=== PATIENT | female | born 1990 ===

== ENCOUNTER 2025-03-25 05:29 | Emergency (ER) | payer OTHER ==
[~2025-03-25] VITALS: Ht 154.9 cm; Wt 88.1 kg
--- NOTE | 2025-03-25 05:51 | ECG ---
[facility] Test Date: 2025-03-25 Test Time: 05:40:59 Pat Name: EVA TOM Department: ED Room: Gender: F Writer: ANDRES : 1990 Requested By: EMERGENCY EMERGENCY Order Number: [id number] Reading MD: Boo Bermudez Measurements Intervals [place] Rate: 102 P: 72 OK: 137 QRS: 95 QRSD: 84 T: 7 QT: 347 QTc: 453 Interpretive Statements Sinus tachycardia Borderline right axis deviation Electronically Signed On 03-26-2025 22:52:04 PDT by Boo Bermudez Please click the below link to view image of tracing.
[2025-03-25 06:08] VITALS: PULSE 78; RESP 18; O2SAT 97
[2025-03-25] MEDS: SODIUM CHLORIDE 0.9% 1,000 ML IV ONE ×2 (06:30)
[2025-03-25] MEDS: methylPREDNISolone SOD SUCC 125 MG/2 ML VL IV ONE (06:30)
--- NOTE | 2025-03-25 06:37 | ED.PDOC ---
HPI Allergic reaction HPI Comments 34 year old female presents to the ED with a chief complaint of allergic reaction onset today (03/25/25). states patient woke up, began experiencing abdominal pain, chest tightness, noticed generalized rash. Upon ED arrival, patient experienced a syncopal episode, states she is currently experiencing generalized weakness, dizziness, shortness of breath. Patient began taking Ozempic about 4 months ago. PMHx HTN. Denies headache, dysphagia, vomiting, diarrhea, fevers, chills. No other symptoms or modifying factors present at this time. Chief Complaint: Allergic Reaction Time Seen by MD: 06:15 Reviewed Notes: Medications, Allergies Allergies: Coded Allergies: NO KNOWN ALLERGIES (Unverified , 03/25/25) Home Meds Active Scripts Prednisone (Prednisone) 10 Mg Tab, 10 MG PO BS for 3 Days, #3 MG Prov:SHYANN LAWSON MD 03/25/25 Meclizine HCl (Meclizine 25) 25 Mg Tab, 25 MG PO DAILY for 5 Days, #5 TAB Prov:SHYANN LAWSON MD 03/25/25 Information Source: Patient, Spouse Mode of Arrival: Ambulatory Severity: Moderate Rash: Moderate Timing: Hours Duration: Since onset Prehospital treatment: None History of: None Modyifying Factors: None Associated Sign and Symptoms: Abdominal Pain, Chest Pain Past Medical History PAST MEDICAL HISTORY: HTN Surgical History: Cholecystectomy, PIPE BUFFER History: No Pertinent PIPE BUFFER History Family History Family History: Reviewed,noncontributory to illness, No family hx of Cancer, No family hx of DM, No family hx of Heart adair, No family hx of HTN, No family hx ofKidney adair, No family hx of Liver adair, No family hx of Lung adair, No family hx of Stroke Social History Smoker: Non-Smoker Alcohol: Denies ETOH Use Drugs: Denies Drug Use Lives In: Home Constitutional: reports: weakness; denies: chills, diaphoresis, fatigue, fever, malaise, sweats, others EENTM: denies: blurred vision, double vision, ear bleeding, ear discharge, ear drainage, ear pain, ear ringing, eye pain, eye redness, hearing loss, mouth pain, mouth swelling, nasal discharge, nose bleeding, nose congestion, nose pain, photophobia, tearing, throat pain, throat swelling, voice changes, others Respiratory: denies: cough, hemoptysis, orthopnea, SOB at rest, shortness of breath, SOB with excertion, stridor, wheezing, others Cardiovascular: reports: chest pain; denies: dizzy spells, diaphoresis, Dyspnea on exertion, edema, irregular heart beat, left arm pain, lightheadedness, palpitations, PND, syncope, others Gastrointestinal: reports: abdominal pain; denies: abdomen distended, blood streaked bowels, constipated, diarrhea, dysphagia, difficulty swallowing, hematemesis, melena, nausea, poor appetite, poor fluid intake, rectal bleeding, rectal pain, vomiting, others Genitourinary: denies: abnormal vagina bleeding, burning, dyspareunia, dysuria, flank pain, frequency, hematuria, incontinence, pain, , vagina discharge, urgency, others Neurological: reports: dizziness, weakness, others (syncope); denies: fainting, headache, left sided numbness, left sided weakness, numbness, paresthesia, pre- existing deficit, right sided numbness, right sided weakness, seizure, speech problems, tingling, tremors Musculoskeletal: denies: back pain, gout, joint pain, joint swelling, muscle pain, muscle stiffness, neck pain, others Integumetry: reports: rash (generalized); denies: bruises, change in color, change in hair/nails, dryness, laceration, lesions, lumps, wounds, others Allergic/Immunocompromised: denies: Difficulty Healing, Frequent Infections, Hives, Itching, others Hematologic/Lymphatic: denies: anemia, blood clots, easy bleeding, easy bruising, swollen glands, others Endocrine: denies: excessive hunger, excessive sweating, excessive thirst, excessive urination, flushing, intolerance to cold, intolerance to heat, unexplained weight gain, unexplained weight loss, others Psychiatric: denies: anxiety, bipolar disorder, depression, hopeless, panic disorder, schizophrenia, sleepless, suicidal, others All Other Systems: Reviewed and Negative Physical Exam General Appearance: Moderate Distress, Normal HEENT: Normal ENT Inspection, Pharynx Normal, TMs Normal Neck: Full Range of Motion, Non-Tender, Normal, Normal Inspection Respiratory: Chest Non-Tender, Lungs Clear, No Accessory Muscle Use, No Respiratory Distress, Normal Breath Sounds Cardiovascular: No Edema, No JVD, No Murmur, No Gallop, Normal Peripheral Pulses, Regular Rate/Rhythm Breast Exam: Deferred Gastrointestinal: No Organomegaly, Non Tender, No Pulsatile Mass, Normal Bowel Sounds, Soft Genitalia: Deferred Pelvic: Deferred Rectal: Deferred Extremities: No calf tenderness, Normal capillary refill, Normal inspection, Normal range of motion, Non-tender, No pedal edema Musculoskeletal : Apperance: Normal Neurologic: Alert, automotive mechanic II-XII nml as Tested, No Motor Deficits Cerebellar Function: NOT DONE Reflexes: NOT DONE Skin: Dry, Normal Color, Warm Peripheral Pulses: 3+ Radial (R), 3+ Radial (L) Lymphatic: No Adenopathy Was a procedure done? Was a procedure done?: No Differential diagnosis (all) Differential Diagnosis: Anaphylaxis, Bronchospasm X-Ray, Labs, Meds, VS Vital Signs Date Time Temp Pulse Resp B/P (MAP) Pulse Ox O2 Delivery O2 Flow Rate FiO2 03/25/25 06:08 98.1 72 18 113/72 (86) 97 98.1 03/25/25 06:08 78 18 97 Room Air* 0 21 03/25/25 05:40 102 03/25/25 05:38 97.9 100 16 124/100 (108) 97 97.9 Lab Test 03/25/25 06:38 Range/Units White Blood Count 10.4 4.4-10.8 10^3/uL Red Blood Count 5.87 H 4.0-5.20 10^6/uL Hemoglobin 16.9 H 12.2-16.2 g/dL Hematocrit 50.0 H 36.0-46.0 % Mean Corpuscular Volume 85.1 80.0-100.0 fL Mean Corpuscular Hemoglobin 28.7 28.0-32.0 pg Mean Corpuscular Hemoglobin Concent 33.7 32.0-36.0 g/dL Red Cell Distribution Width 13.9 11.8-14.3 % Platelet Count 283 140-450 10^3/uL Mean Platelet Volume 8.6 6.9-10.8 fL Neutrophils (%) (Auto) 78.8 37.0-80.0 % Lymphocytes (%) (Auto) 17.0 10.0-50.0 % Monocytes (%) (Auto) 3.5 0.0-12.0 % Eosinophils (%) (Auto) 0.4 0.0-7.0 % Basophils (%) (Auto) 0.3 0.0-2.0 % Neutrophils # (Auto) 8.2 1.6-8.6 10 ^3/uL Lymphocytes # (Auto) 1.8 0.4-5.4 10 ^3/uL Monocytes # (Auto) 0.4 0-1.3 10 ^3/uL Eosinophils # (Auto) 0 0-0.8 10 ^3/uL Basophils # (Auto) 0 0-0.2 10 ^3/uL Nucleated Red Blood Cells 0.0 % Sodium Level 141 136-145 mmol/L Potassium Level 3.3 L 3.5-5.1 mmol/L Chloride Level 105 98-107 mmol/L Carbon Dioxide Level 23 20-31 mmol/L Anion Gap 13 5-15 Blood Urea Nitrogen 13 9-23 mg/dL Creatinine 0.87 0.550-1.02 mg/dL Glomerular Filtration Rate Calc 91 >90 mL/min BUN/Creatinine Ratio 14.9 10.0-20.0 Serum Glucose 161 H 74-106 mg/dL Calcium Level 10.6 H 8.7-10.4 mg/dL Current Medications Medications (Trade) Dose Ordered Sig/Monique Route Start Time Stop Time Status Last Admin Sodium Chloride 1,000 ml @ 1,000 mls/hr Q1H ONCE IV 03/25/25 06:30 03/25/25 07:29 DC 03/25/25 06:30 Sodium Chloride 1,000 ml @ 150 mls/hr Q6H40M ONCE IV 03/25/25 06:30 03/25/25 13:09 03/25/25 06:30 Methylprednisolone Sodium Succinate (Solu Medrol) 125 mg ONCE ONCE IV 03/25/25 06:30 03/25/25 06:31 DC 03/25/25 06:30 Meclizine HCl (Antivert Tablet) 25 mg ONCE ONCE PO 03/25/25 06:30 03/25/25 06:31 DC 03/25/25 06:46 Patient alert. Answering all questions. No sign of distress. Vitals stable. Establish intravenous access. Was given fluids. Spoke to the patient after she was in her room. States that she is feeling much better. Pristine neurological examination. CT of the head was not done because her neurological exam was pristine. No sign of any stroke. Good skin color. Potassium is low. Was given potassium. Blood sugar elevated. She does have diabetes. Mild redness around the hands for which she was given steroid. No leg swelling. No shortness a breath. No chest pain. Heart rate within normal limits. Saturation pristine on room air. Was given prescription of meclizine prednisone. Explained to the patient. Was told to follow up with her primary care physician. Was told to come back if there is any problem. Time of 1ST Reevaluation: 06:45 Reevaluation 1ST: Improved Patient Education/Counseling: Diagnosis, Treatment, Prognosis Family Education/Counseling: Diagnosis, Treatment, Prognosis SEPSIS Sepsis Screen Date sepsis recognized/suspect: Mar 25, 2025 Time Sepsis recognized/suspect: 610 Recent Procedure: No On Antibiotic Therapy: No Respiratory Rate >20: No Heart Rate >90: No Temp<36 C (96.8 F) or >38.3 C: No SBP <90 or MAP <65 mmHG: No New Acute Mental Status Change: No Is the patient on CPAP, BIPAP,: No Physician Orders Urinalysis (03/25/25 06:26) Sodium Chloride 0.9% (03/25/25 06:30) Vital Signs Date Time Temp Pulse Resp B/P (MAP) Pulse Ox O2 Delivery O2 Flow Rate FiO2 03/25/25 06:08 98.1 72 18 113/72 (86) 97 98.1 03/25/25 06:08 78 18 97 Room Air* 0 21 03/25/25 05:40 102 03/25/25 05:38 97.9 100 16 124/100 (108) 97 97.9 Laboratory Tests Test 03/25/25 06:38 White Blood Count 10.4 10^3/uL (4.4-10.8) Medications Medications Dose Ordered Sig/Moniuqe Route Start Time Stop Time Status Last Admin Dose Admin Meclizine HCl 25 mg ONCE ONCE PO 03/25/25 06:30 03/25/25 06:31 DC 03/25/25 06:46 Methylprednisolone Sodium Succinate 125 mg ONCE ONCE IV 03/25/25 06:30 03/25/25 06:31 DC 03/25/25 06:30 Sodium Chloride 1,000 ml @ 150 mls/hr Q6H40M ONCE IV 03/25/25 06:30 03/25/25 13:09 03/25/25 06:30 Sodium Chloride 1,000 ml @ 1,000 mls/hr Q1H ONCE IV 03/25/25 06:30 03/25/25 07:29 DC 03/25/25 06:30 Departure 1 Departure Time of Disposition: 06:45 Impression: Primary Impression: Dehydration Additional Impressions: Autonomic dysfunction Hypokalemia Allergic reaction Qualified Codes: T78.40XA - Allergy, unspecified, initial encounter Uncontrolled diabetes mellitus Qualified Codes: E13.65 - Other specified diabetes mellitus with hyperglycemia Disposition: 01 HOME / SELF CARE / HOMELESS Condition: Good e-Prescriptions Prednisone (Prednisone) 10 Mg Tab 10 MG PO BS for 3 Days, #3 MG Prov: SHYANN LAWSON MD 03/25/25 Meclizine HCl (Meclizine 25) 25 Mg Tab 25 MG PO DAILY for 5 Days, #5 TAB Prov: SHYANN LAWSON MD 03/25/25 Discharged With: Self Critical Care Note Critical Care Time?: No Stability Stability form required: No Heart Score Heart Score: Heart Score Response (Comments) Value History N/A 0 EKG N/A 0 Age N/A 0 Risk Factors N/A 0 Troponin N/A 0 Total 0 I personally scribed for SHYANN LAWSON MD ([email or web address]) on 03/25/25 at 06:37. Electronically submitted by Eugenia Aponte ([email or web address]). SHYANN LAWSON MD Mar 25, 2025 06:37
[2025-03-25] MEDS: MECLIZINE HCL 25 MG TAB PO ONE (06:46)
[2025-03-25] MEDS ORDERED: MECL1TAB42 PO (06:47)
[2025-03-25] MEDS ORDERED: PRED10TA PO (06:47)
[2025-03-25 07:08] LABS: Basophils # (auto) 0 10 ^3/uL (0-0.2); Basophils % (auto) 0.3 % (0.0-2.0); Eosinophils # (auto) 0 10 ^3/uL (0-0.8); Eosinophils % (auto) 0.4 % (0.0-7.0); Hemoglobin 16.9 g/dL (12.2-16.2); Lymphocytes # (auto) 1.8 10 ^3/uL (0.4-5.4); Mean Corpuscular Hemoglobin 28.7 pg (28.0-32.0); Mean Corpuscular Hgb Conc. 33.7 g/dL (32.0-36.0); Mean Corpuscular Volume 85.1 fL (80.0-100.0); Monocytes # (auto) 0.4 10 ^3/uL (0-1.3); Monocytes % (auto) 3.5 % (0.0-12.0); Neutrophils # (auto) 8.2 10 ^3/uL (1.6-8.6); Neutrophils % (auto) 78.8 % (37.0-80.0); Platelet Count (auto) 283 10^3/uL (140-450); Red Blood Cells 5.87 10^6/uL (4.0-5.20); Red Cell Distribution Width 13.9 % (11.8-14.3); White Blood Cell 10.4 10^3/uL (4.4-10.8)
[2025-03-25 07:15] LABS: Chloride 105 mmol/L (98-107); Sodium 141 mmol/L (136-145)
[2025-03-25 07:16] LABS: Anion Gap 13 (5-15); Carbon Dioxide 23 mmol/L (20-31)
[2025-03-25 07:18] LABS: Calcium 10.6 mg/dL (8.7-10.4); Potassium 3.3 mmol/L (3.5-5.1)
[2025-03-25 07:21] LABS: BUN/Creatinine Ratio 14.9 (10.0-20.0); Blood Urea Nitrogen 13 mg/dL (9-23); Glucose 161 mg/dL (74-106)
[2025-03-25 07:30] VITALS: BP 115/81; TEMP 97.8
[2025-03-25] MEDS: POTASSIUM EFFERVESENT TAB 25 MEQ PO ONE (07:45)
[2025-03-25 08:01] VITALS: PULSE 96; RESP 18; O2SAT 98
== END 2025-03-25 09:41 | disposition home or self-care (01) ==
LOC: ER 05:29
DX: T78.40XA Allergy, unspecified, initial encounter (principal); E86.0 Dehydration; E87.6 Hypokalemia; I10 Essential (primary) hypertension; E11.65 Type 2 diabetes mellitus with hyperglycemia; Z90.49 Acquired absence of other specified parts of digestive tract; X58.XXXA Exposure to other specified factors, initial encounter
CPT/HCPCS: 36415; 80048; 85025; 93005; 96361; 96374; 99284; J2919; J7030; J8597

== ENCOUNTER 2025-07-24 08:33 | Emergency (ER) | payer OTHER ==
[~2025-07-24] VITALS: Ht 154.9 cm; Wt 88.6 kg
[~2025-07-24 08:33] MED LIST: MECL1TAB42 PO; PRED10TA PO
[2025-07-24] MEDS ORDERED: HYDR50TA69 PO (09:08)
[2025-07-24] MEDS ORDERED: PRED20TA2 PO (09:08)
--- NOTE | 2025-07-24 09:08 | ED.PDOC ---
HPI Allergic reaction HPI Comments A 34 YEAR OLD FEMALE PRESENTS TO THE ED WITH COMPLAINT OF ALLERGIC REACTION. PT STATES THIS AM, PT WAS USING RESTROOM AND STATES SHE HAD BODY SKIN RASH. PT STATE SHE WOKE UP TO WHOLE BODY RASH. PT AT HOME TOOK CHILDRENS BENADRYL. PT STATES HER HIVES DID NOT GO AWAY AND CAME TO THE ED FOR FURTHER EVALUATION. PT NOW IN THE ED, HAS NOTED WHOLE BODY HIVES BUT OTHERWISE DENIES SHORTNESS OF BREATH, OR ANY RESPIRATORY DISTRESS. PATIENT DENIES FEVER, CHILLS, SHORTNESS OF BREATH, CHEST PAIN, ABDOMINAL PAIN, NAUSEA, VOMITING, HEADACHE, OR OTHER COMPLAINTS. NO OTHER SYMPTOMS OR MODIFYING FACTORS AT THIS TIME. PATIENT IS ALERT, ORIENTED X 4, AND HAS STEADY GAIT. Chief Complaint: Allergic Reaction Time Seen by MD: 09:00 Reviewed Notes: Nurses Notes, Medications, Allergies Allergies: Coded Allergies: NO KNOWN ALLERGIES (Unverified , 03/25/25) Home Meds Active Scripts Hydroxyzine Hcl (Hydroxyzine Hcl) 50 Mg Tab, 1 TAB PO BID, #30 TAB Prov:TRAE RINCON 07/24/25 Prednisone (Prednisone) 20 Mg Tab, 60 MG PO DAILY, #24 TAB Prov:TRAE RINCON 07/24/25 Prednisone (Prednisone) 10 Mg Tab, 10 MG PO BS for 3 Days, #3 MG Prov:SHYANN LAWSON MD 03/25/25 Meclizine HCl (Meclizine 25) 25 Mg Tab, 25 MG PO DAILY for 5 Days, #5 TAB Prov:SHYANN LAWSON MD 03/25/25 Information Source: Patient Mode of Arrival: Ambulatory Brought in by: SELF Severity: Moderate Rash: Moderate SOB: None Difficulty swallowing: None Pruritus: Mild, Moderate Timing: Days Duration: Since onset, Days Prehospital treatment: None Location: Arm, Back, Chest, Face, Leg Exposed to: Unknown Developed: Pruritus, Rash History of: Urticaria Modyifying Factors: Diphenhydramine Associated Sign and Symptoms: None Past Medical History PAST MEDICAL HISTORY: Anxiety, HTN Surgical History: Cholecystectomy, [employer] CONTROL SPECIALIST History: No Pertinent COMMAND AND CONTROL SPECIALIST History Family History Family History: Reviewed,noncontributory to illness, No family hx of Cancer, No family hx of DM, No family hx of Heart adair, No family hx of HTN, No family hx ofKidney adair, No family hx of Liver adair, No family hx of Lung adair, No family hx of Stroke Social History Smoker: Non-Smoker Alcohol: Denies ETOH Use Drugs: Denies Drug Use Lives In: Home Constitutional: denies: chills, diaphoresis, fatigue, fever, malaise, sweats, weakness, others EENTM: denies: blurred vision, double vision, ear bleeding, ear discharge, ear drainage, ear pain, ear ringing, eye pain, eye redness, hearing loss, mouth pain, mouth swelling, nasal discharge, nose bleeding, nose congestion, nose pain, photophobia, tearing, throat pain, throat swelling, voice changes, others Respiratory: denies: cough, hemoptysis, orthopnea, SOB at rest, shortness of breath, SOB with excertion, stridor, wheezing, others Cardiovascular: denies: chest pain, dizzy spells, diaphoresis, Dyspnea on exertion, edema, irregular heart beat, left arm pain, lightheadedness, palpitations, PND, syncope, others Gastrointestinal: denies: abdomen distended, abdominal pain, blood streaked bowels, constipated, diarrhea, dysphagia, difficulty swallowing, hematemesis, melena, nausea, poor appetite, poor fluid intake, rectal bleeding, rectal pain, vomiting, others Genitourinary: denies: abnormal vagina bleeding, burning, dyspareunia, dysuria, flank pain, frequency, hematuria, incontinence, pain, , vagina discharge, urgency, others Neurological: denies: dizziness, fainting, headache, left sided numbness, left sided weakness, numbness, paresthesia, pre-existing deficit, right sided numbne ss, right sided weakness, seizure, speech problems, tingling, tremors, weakness, others Musculoskeletal: denies: back pain, gout, joint pain, joint swelling, muscle pain, muscle stiffness, neck pain, others Integumetry: reports: rash; denies: bruises, change in color, change in hair/nails, dryness, laceration, lesions, lumps, wounds, others Allergic/Immunocompromised: reports: Hives, Itching; denies: Difficulty Healing, Frequent Infections, others Hematologic/Lymphatic: denies: anemia, blood clots, easy bleeding, easy bruising, swollen glands, others Endocrine: denies: excessive hunger, excessive sweating, excessive thirst, excessive urination, flushing, intolerance to cold, intolerance to heat, unexplained weight gain, unexplained weight loss, others Psychiatric: denies: anxiety, bipolar disorder, depression, hopeless, panic disorder, schizophrenia, sleepless, suicidal, others All Other Systems: Reviewed and Negative Physical Exam General Appearance: No Apparent Distress, Obese HEENT: Normal ENT Inspection, PERRL/EOMI, Pharynx Normal, TMs Normal Neck: Full Range of Motion, Non-Tender, Normal, Normal Inspection Respiratory: Chest Non-Tender, Lungs Clear, No Accessory Muscle Use, No Respiratory Distress, Normal Breath Sounds Cardiovascular: No Edema, No JVD, No Murmur, No Gallop, Normal Peripheral Pulses, Regular Rate/Rhythm Breast Exam: Deferred Gastrointestinal: No Organomegaly, Non Tender, No Pulsatile Mass, Normal Bowel Sounds, Soft Genitalia: Deferred Pelvic: Deferred Rectal: Deferred Extremities: No calf tenderness, Normal capillary refill, Normal inspection, Normal range of motion, Non-tender, No pedal edema Musculoskeletal : Apperance: Normal Neurologic: Alert, pattern chain builder II-XII nml as Tested, No Motor Deficits, Normal Affect, Normal Mood, No Sensory Deficits Cerebellar Function: Normal Reflexes: Normal Skin: Dry, Rash (ERYTHEMA SKIN RASH WITH HIVES ON UPPER AND LOWER BODY REGION, NO TENDERNESS AND SWELLING. ), Warm Peripheral Pulses: 2+ carotid (R), 2+ carotid (L) Lymphatic: No Adenopathy Was a procedure done? Was a procedure done?: No EKG EKG : Pulse Rate (adult): 75 [place]: Normal Cardiac Rhythm: NSR Block: None Hypertrophy: None ST: Normal Differential diagnosis (all) Differential Diagnosis: Contact Dermatitis, Drug Reaction, Urticaria Other Differential Diagnosis ALLERGIC REACTION X-Ray, Labs, Meds, VS Vital Signs Date Time Temp Pulse Resp B/P (MAP) Pulse Ox O2 Delivery O2 Flow Rate FiO2 07/24/25 13:37 99.3 88 18 120/80 (93) 98 99.3 07/24/25 13:37 88 18 98 Room Air 07/24/25 10:14 97.7 87 20 110/73 (85) 96 97.7 07/24/25 09:25 75 07/24/25 08:34 97.2 105 20 118/88 97 97.2 Lab Test 07/24/25 10:39 07/24/25 09:31 Range/Units Urine Color Yellow Yellow Urine Clarity Clear Clear Urine pH 5.5 5.0-9.0 Urine Specific [place] 1.024 1.001-1.035 Urine Protein Trace H Negative Urine Ketones Negative Negative Urine Blood Negative Negative /uL Urine Nitrite Negative Negative Urine Bilirubin Negative Negative Urine Urobilinogen Normal Negative mg/dL Urine Leukocyte Esterase Negative Negative /uL Urine RBC 1 0 - 4 /hpf Urine Microscopic WBC 2 0-5 /HPF Urine Squamous Epithelial Cells Few <5 /hpf Urine Bacteria None seen None Seen /hpf Urine Mucus Few None Seen Urine Glucose Normal Normal mg/dL Urine Test Negative Negative White Blood Count 10.7 4.4-10.8 10^3/uL Red Blood Count 6.21 H 4.0-5.20 10^6/uL Hemoglobin 17.8 H 12.2-16.2 g/dL Hematocrit 54.2 H 36.0-46.0 % Mean Corpuscular Volume 87.2 80.0-100.0 fL Mean Corpuscular Hemoglobin 28.6 28.0-32.0 pg Mean Corpuscular Hemoglobin Concent 32.8 32.0-36.0 g/dL Red Cell Distribution Width 14.2 11.8-14.3 % Platelet Count 309 140-450 10^3/uL Mean Platelet Volume 8.4 6.9-10.8 fL Neutrophils (%) (Auto) 83.5 H 37.0-80.0 % Lymphocytes (%) (Auto) 13.1 10.0-50.0 % Monocytes (%) (Auto) 2.5 0.0-12.0 % Eosinophils (%) (Auto) 0.3 0.0-7.0 % Basophils (%) (Auto) 0.6 0.0-2.0 % Neutrophils # (Auto) 8.9 H 1.6-8.6 10 ^3/uL Lymphocytes # (Auto) 1.4 0.4-5.4 10 ^3/uL Monocytes # (Auto) 0.3 0-1.3 10 ^3/uL Eosinophils # (Auto) 0 0-0.8 10 ^3/uL Basophils # (Auto) 0.1 0-0.2 10 ^3/uL Nucleated Red Blood Cells 0.0 % Sodium Level 138 136-145 mmol/L Potassium Level 4.2 3.5-5.1 mmol/L Chloride Level 100 98-107 mmol/L Carbon Dioxide Level 27 20-31 mmol/L Anion Gap 11 5-15 Blood Urea Nitrogen 13 9-23 mg/dL Creatinine 0.92 0.550-1.02 mg/dL Glomerular Filtration Rate Calc 85 >90 mL/min BUN/Creatinine Ratio 14.1 10.0-20.0 Serum Glucose 162 H 74-106 mg/dL Calcium Level 10.1 8.7-10.4 mg/dL Troponin I High Sensitivity < 3 L </=34 ng/L Thyroid Stimulating Hormone (TSH) 0.86 0.55-4.78 uIU/mL Current Medications Medications (Trade) Dose Ordered Sig/Monique Route Start Time Stop Time Status Last Admin Sodium Chloride 1,000 ml @ 1,000 mls/hr Q1H ONCE IV 07/24/25 11:15 07/24/25 12:14 DC 07/24/25 11:43 EXAM: CT HEAD WITHOUT CONTRAST INDICATION: SYNCOPE TECHNIQUE: CT images of the head were obtained without administration of IV contrast. CT scans at this facility use dose modulation, iterative reconstruction, and/or weight based dosing when appropriate to reduce radiation dose to as low as reasonably achievable. COMPARISON: None FINDINGS: PARENCHYMA: No acute hemorrhage. There is no mass effect, midline shift, or herniation. There is preservation of the rivas white differentiation. VENTRICLES: No hydrocephalus. EXTRA-AXIAL SPACES: No extra-axial fluid collections. OTHER: The bony structures are intact. Visualized portions of the paranasal sinuses and mastoid air cells are clear. IMPRESSION: 1. No CT evidence of an acute intracranial abnormality. ATED BY: ISAC LOEWRY MD DICTATED DATE/TIME: 07/24/251216 SIGNED BY: ISAC LOWERY MD SIGNED DATE/TIME: 07/24/251216 CC: CHEST RADIOGRAPH Indication: SYNCOPE Technique: XY CHEST XRAY 1 VIEW Comparison: None FINDINGS: The cardiac silhouette is unremarkable. The lungs demonstrate no pulmonary airspace consolidation. The pulmonary vasculature is unremarkable. There is no pleural effusion. There is no pneumothorax. IMPRESSION: No pulmonary airspace consolidation. ATED BY: GALDINO LOPEZ MD DICTATED DATE/TIME: 07/24/25 1156 SIGNED BY: GALDINO LOPEZ MD SIGNED DATE/TIME: 07/24/251155 CC: X-Ray, Labs, Meds, VS Comment COURSE: EXTERNAL MEDICAL RECORDS REVIEWED: [NONE] INDEPENDENT HISTORIANS: [NONE] SOCIAL DETERMINANTS OF HEALTH: [NONE] LABS ORDERED: CBC, BMP, UA, URINE , TROPONIN, TSH REVIEWED AND INTERPRETED RESULTS: NORMAL IMAGING ORDERED: CT BRAIN, XR CHEST TREATMENTS ORDERED: EPI 0.3 MG IM WAS ORDERED, BUT PATIENT DID NOT RECEIVE THIS INJECTION DUE TO HAVING A NEAR-SYNCOPAL EPISODE RIGHT BEFORE TREATMENT. NS 1L IV, SOLU-MEDROL 125MG IV DUE TO THE PATIENT HAVING A NEAR SYNCOPAL EPISODE, I ORDERED A FULL WORKUP. PATIENT'S WORKUP WITH NORMAL AND PATIENT NOTED THAT SHE DID NOT HAVE BREAKFAST PRIOR TO HER VISIT TO THE ED AND THINKS THIS MAY HAVE HAD SOMETHING TO DO WITH HER NEAR SYNCOPAL EPISODE. PATIENT CURRENTLY IS WELL-APPEARING AND FEELS BETTER AT THIS TIME. PROCEDURES PERFORMED: NONE CRITICAL CARE TIME: NONE I HAVE DISCUSSED THE PATIENT WITH THE ATTENDING PHYSICIAN, DR. PATTON, HE AGREES WITH THE PATIENT'S PLAN OF CARE AND DISPOSITION. BASED ON HISTORY OF PRESENT ILLNESS, AND PHYSICAL EXAM, PATIENT WILL BE DISCHARGED HOME. DISCUSSED PLAN FOR DISCHARGE HOME WITH RX [PREDNISONE AND VISTARIL 50MG ]. MEDICATION WARNINGS GIVEN. SHARED DECISION MAKING: DISCUSSED WITH PATIENT THAT THEIR WORKUP WAS NORMAL. PATIENT INSTRUCTED TO FOLLOW UP WITH PRIMARY CARE PROVIDER IN 1-2 DAYS FOR RE- EVALUATION OF SYMPTOMS. PATIENT VERBALIZES UNDERSTANDING TO RETURN TO ED FOR NEW OR WORSENING SYMPTOMS OR IF FOLLOW UP WITH PCP CANNOT BE OBTAINED. PATIENT FEELS COMFORTABLE GOING HOME AT THIS TIME. ALL QUESTIONS ADDRESSED AT TIME OF DISCHARGE. Images Reviewed?: Images reviewed and evaluated by me Time of 1ST Reevaluation: 09:30 Reevaluation 1ST: Unchanged Time of 2ND Reevaluation: 12:30 Reevaluation 2ND: Improved Patient Education/Counseling: Diagnosis, Treatment, Need For Follow Up Family Education/Counseling: Diagnosis, Treatment, Need For Follow Up, No Family Present Medical Screening: No EMC Exist At This Time SEPSIS Sepsis Screen Date sepsis recognized/suspect: Jul 24, 2025 Time Sepsis recognized/suspect: 0835 Recent Procedure: No On Antibiotic Therapy: No Respiratory Rate >20: No Heart Rate >90: Yes Temp<36 C (96.8 F) or >38.3 C: No SBP <90 or MAP <65 mmHG: No New Acute Mental Status Change: No Is the patient on CPAP, BIPAP,: No Physician Orders Chest Xray 1 View (07/24/25 09:19) Heplock Iv (07/24/25 ) Head Without Contrast (07/24/25 11:19) Vital Signs Date Time Temp Pulse Resp B/P (MAP) Pulse Ox O2 Delivery O2 Flow Rate FiO2 07/24/25 13:37 99.3 88 18 120/80 (93) 98 99.3 07/24/25 13:37 88 18 98 Room Air 07/24/25 10:14 97.7 87 20 110/73 (85) 96 97.7 07/24/25 09:25 75 07/24/25 08:34 97.2 105 20 118/88 97 97.2 Laboratory Tests Test 07/24/25 09:31 White Blood Count 10.7 10^3/uL (4.4-10.8) Departure 1 Departure Time of Disposition: 12:30 Impression: Primary Impression: Allergic reaction Qualified Codes: T78.40XA - Allergy, unspecified, initial encounter Additional Impression: Vasovagal syncope Disposition: 01 HOME / SELF CARE / HOMELESS Condition: Stable Additional Instructions: INSTRUCTIONS: FOLLOW-UP WITH PCP IN 1 TO 2 DAYS. TAKE MEDICATIONS PRESCRIBED. RETURN TO ED FOR ANY NEW OR WORSENING SYMPTOMS. e-Prescriptions Hydroxyzine Hcl (Hydroxyzine Hcl) 50 Mg Tab 1 TAB PO BID, #30 TAB Prov: TRAE RINCON 07/24/25 Prednisone (Prednisone) 20 Mg Tab 60 MG PO DAILY, #24 TAB Prov: TRAE RINCON 07/24/25 Discharged With: Self, Relative Critical Care Note Critical Care Time?: No Stability Stability form required: No Heart Score Heart Score: Heart Score Response (Comments) Value History N/A 0 EKG N/A 0 Age N/A 0 Risk Factors N/A 0 Troponin N/A 0 Total 0 I personally scribed for TRAE RINCON ([email or web address]) on 07/24/25 at 09:08. Electronically submitted by Gerard Akers ([facility] [place]). I personally scribed for ISMAEL PATTON MD ([email or web address]) on 07/25/25 at 06:59. Electronically submitted by Deep Garcia ([email or web address]). TRAE RINCON Jul 24, 2025 09:08 ISMAEL PATTON MD Jul 25, 2025 06:59
--- NOTE | 2025-07-24 09:26 | ECG ---
[facility] Test Date: 2025-07-24 Test Time: 09:25:13 Pat Name: EVA TOM Department: [facility] ED Patient ID: [id number] Room: Gender: F Custom Bookbinder: JUAN : 1990 Requested By: TRAE RINCON Order Number: [id number] Reading MD: Measurements Intervals [place] Rate: 75 P: 68 MO: 144 QRS: 55 QRSD: 85 T: 28 QT: 376 QTc: 420 Interpretive Statements Sinus rhythm Please click the below link to view image of tracing.
[2025-07-24 09:55] LABS: Mean Corpuscular Hemoglobin 28.6 pg (28.0-32.0); Nucleated Red Blood Cells % 0.0 %
[2025-07-24 09:57] LABS: Hematocrit 54.2 % (36.0-46.0); Hemoglobin 17.8 g/dL (12.2-16.2); Mean Corpuscular Volume 87.2 fL (80.0-100.0)
[2025-07-24 10:04] LABS: Chloride 100 mmol/L (98-107); Potassium 4.2 mmol/L (3.5-5.1); Sodium 138 mmol/L (136-145)
[2025-07-24 10:05] LABS: Anion Gap 11 (5-15); Calcium 10.1 mg/dL (8.7-10.4); Carbon Dioxide 27 mmol/L (20-31)
[2025-07-24 10:10] LABS: BUN/Creatinine Ratio 14.1 (10.0-20.0); Blood Urea Nitrogen 13 mg/dL (9-23)
[2025-07-24 10:15] LABS: Glucose 162 mg/dL (74-106)
[2025-07-24] MEDS: methylPREDNISolone SOD SUCC 125 MG/2 ML VL IV ONE (11:15)
[2025-07-24 11:37] LABS: Urine Protein, UAD TRACE (Negative)
[2025-07-24] MEDS: SODIUM CHLORIDE 0.9% 1,000 ML IV ONE (11:43)
--- NOTE | 2025-07-24 11:54 | DVH ---
CHEST RADIOGRAPH Indication: SYNCOPE Technique: XY CHEST XRAY 1 VIEW Comparison: None FINDINGS: The cardiac silhouette is unremarkable. The lungs demonstrate no pulmonary airspace consolidation. Th e pulmonary vasculature is unremarkable. There is no pleural effusion. There is no pneumothorax. IMPRESSION: No pulmonary airspace consolidation.
--- NOTE | 2025-07-24 12:19 | DVH ---
EXAM: CT HEAD WITHOUT CONTRAST INDICATION: SYNCOPE TECHNIQUE: CT images of the head were obtained without administration of IV contrast. CT scans at [facility] facility use dose modulation, iterative reconstruction, and/or weight based dosing when appropriate to reduce radiation dose to as low as reasonably achievable. COMPARISON: None FINDINGS: PARENCHYMA: No acute hemorrhage. There is no mass effect, midline shift, or herniation. There is pres ervation of the rivas white differentiation. VENTRICLES: No hydrocephalus. EXTRA-AXIAL SPACES: No extra-axial fluid collections. OTHER: The bony structures are intact. Visualized portions of the paranasal sinuses and mastoid air cells are clear. IMPRESSION: 1. No CT evidence of an acute intracranial abnormality.
[2025-07-24 13:37] VITALS: BP 120/80; RESP 18; TEMP 99.3; O2SAT 98
[2025-07-25 07:07] VITALS: PULSE 75
== END 2025-07-24 13:42 | disposition home or self-care (01) ==
LOC: ER 08:33
DX: T78.40XA Allergy, unspecified, initial encounter (principal); R51.9 Headache, unspecified; F41.9 Anxiety disorder, unspecified; I10 Essential (primary) hypertension; Z90.49 Acquired absence of other specified parts of digestive tract; Z79.52 Long term (current) use of systemic steroids; X58.XXXA Exposure to other specified factors, initial encounter
CPT/HCPCS: 36415; 70450; 71045; 80048; 81001; 81025; 84443; 84484; 85025; 93005; 96360; 99285; J2919; J7030